=== PATIENT | female | born 1930 | race Caucasian/White ===

== ENCOUNTER → 2016-05-19 | Outpatient (CLI) | payer OTHER, MEDICAID ==
--- NOTE | 2016-05-19 14:23 | DX ---
Right Wrist, 4 views including a navicular view History: Chronic pain post trauma. Slip and fall in February 2016. Comparison: September 25, 2009 Findings: No fracture or dislocation is identified. 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 There is a stable hypertrophic ridge of the d istal navicular. There are chronic degenerative cysts or erosions involving the carpal bones and ulna r styloid. Mineralization is normal. I do not identify a subacute or healing fracture. 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 Alignment remains anatomic. Impression: No subacute or chronic healing fracture identified. Might this patient have CPPD?
== END ==
LOC: BMCIMAGING 14:05
PROVIDERS: ATTEND Family Medicine
DX: M25.531 Pain in right wrist (principal); W19.XXXA Unspecified fall, initial encounter

== ENCOUNTER 2016-07-06 14:30 | Emergency (ER) | payer OTHER, MEDICAID ==
--- NOTE | 2016-07-06 15:04 | EDPHY ---
H & P Time Seen by Provider: 07/06/16 15:03 HPI/ROS: CHIEF COMPLAINT: Epistaxis HISTORY OF PRESENT ILLNESS: This patient is an 85 year old female who presents to the Emergency Department complaining of acute right-sided epistaxis beginning approximately 40 minutes prior to arrival. She had a previous nosebleed yesterday lasting for approximately 1.5 hours before subsiding on its own. She denies rhinorrhea recently or any recent colds or infections. She denies lightheadedness, weakness, or any additional complaints. No anticoagulant use. REVIEW OF SYSTEMS: Constitutional: No fever, no chills Eyes: No visual changes ENT: No sore throat Respiratory: No cough, no shortness of breath Cardiac: No chest pain Gastrointestinal: No nausea, no vomiting, no abdominal pain Genitourinary: No hematuria, no dysuria Musculoskeletal: No leg pain or swelling Skin: No rash Neurological: No headache, no numbness, no weakness Psychiatric: No depression Past Medical/Surgical History: Hypertension (lisinopril). Social History: . Lives in [place]. Never smoked. Smoking Status: Never smoked Physical Exam: General Appearance: Alert, no distress Eyes: Pupils equal and round, no conjunctival pallor or injection ENT, Mouth: Mucous membranes moist; prominent vessel on anterior septum, no current bleeding Neck: Normal inspection Respiratory: Lungs are clear to auscultation Cardiovascular: Regular rate and rhythm Gastrointestinal: Abdomen is soft and non- tender Neurological: A&O, nonfocal, normal gait Skin: Warm and dry, no rash Extremities: Nontender, no pedal edema Psychiatric: Mood and affect normal Constitutional: Initial Vital Signs Temperature (C) 36.5 C 07/06/16 14:40 Heart Rate 71 07/06/16 14:40 Respiratory Rate 18 07/06/16 14:40 Blood Pressure 153/65 H 07/06/16 14:40 O2 Sat (%) 96 07/06/16 14:40 O2 Delivery Mode Room Air Allergies/Adverse Reactions: No Known Allergies Allergy (Verified 07/06/16 14:39) Home Medications: Medication Instructions Recorded HYDROCHLOROTHIAZIDE 09/25/09 LISINOPRIL 09/25/09 PRAVASTATIN SODIUM 09/25/09 oxyCODONE/APAP 5/325 [Percocet 1 tab PO Q6 #15 tab 09/25/09 5/325] Ondansetron Odt [Zofran Odt 4 mg 4 mg PO Q4 PRN #6 tab 05/14/14 (*)] Medical Decision Making Procedures: Procedure: Epistaxis control. Indication: Recurrent nosebleed Risks, benefits, alternatives discussed with patient and consent obtained. The right nares was anesthetized with 4% Lidocaine. The anterior epistaxis was identified. The prominent vessel on the anterior septum was cauterized with silver nitrate. Following the procedure the patient was re-examined; no recurrent bleeding. The patient tolerated the procedure well. The procedure was performed by myself, Dr. Zimmerman. ED Course/Re-evaluation: This normally healthy non-anticoagulated 85 year old female presents with a second episode of acute right-sided epistaxis within the last two days. She reports that her nosebleed has remained intractable for the last 40 minutes. On exam, there is a prominent vessel on the anterior septum but no active bleeding. Epistaxis control procedure performed (see procedure note). I provided the patient with a nose clip for epistaxis control and discussed appropriate treatment of recurrent nosebleeds. She will be discharged home in good condition with customary return precautions and referral to her PCP for follow-up. Departure - Departure Disposition: Home, Routine, Self-Care Clinical Impression: Right-sided epistaxis Condition: Good Instructions: Nosebleed (ED) Additional Instructions: 1. If you have a repeat nosebleed, use the clip provided to squeeze your nose to prevent continued bleeding. 2. If you have a repeat nosebleed that will not stop bleeding even with use of the clip for over 2 hours, please return to the Emergency Department. You should also return here if you experience lightheadedness, dizziness, confusion , or for other serious concerns. 3. Follow-up with your primary care provider if you have multiple repeat nosebleeds to discuss long-term preventative care. Referrals: Leah Shields MD [Primary Care Provider] - As per Instructions Report Scribed for: Hermelinda Zimmerman Report Scribed by: Maddie Cameron Date of Report: 07/06/16 Time of Report: 15:04 Physician Review and Approval Statement: 07/06/16 15:04 Portions of this note were transcribed by a medical videographer. I personally performed a history, physical exam, medical decision making, and confirmed accuracy of information the transcribed note.
[2016-07-06] MEDS ORDERED: LIDOCAINE HCL 4% TOPICAL SOLN 50ML ONE (15:15)
[2016-07-06] MEDS ORDERED: SILVER NITRATE APPLICATOR 1 APPL TP ONE (15:18)
[2016-07-06 15:53] VITALS: BP 159/75; PULSE 57; RESP 16; TEMP 97.5; O2SAT 90
== END 2016-07-06 15:53 | disposition home or self-care (01) ==
PROC: 2Y41X5Z Packing of Nasal Region using Packing Material (ICD-10-PCS; principal; 2016-07-06)
DX: R04.0 Epistaxis (principal); I10 Essential (primary) hypertension

== ENCOUNTER → 2016-11-14 | Outpatient (CLI) | payer OTHER, MEDICAID | LOC: BMCIMAGING 12:51 | PROVIDERS: ATTEND Family Medicine | DX: Z12.31 Encounter for screening mammogram for malignant neoplasm of breast (principal) | CPT/HCPCS: G0202 ==

== ENCOUNTER 2017-07-18 11:22 | Emergency (ER) | payer OTHER, MEDICAID ==
--- NOTE | 2017-07-18 11:55 | CPEKG ---
Heart Rate: 77 RR Interval: 779 P-R Interval: 184 QRSD Interval: 78 QT Interval: 384 QTC Interval: 435 P [place]: 14 QRS [place]: 27 T Wave [place]: 48 EKG Severity - BORDERLINE ECG - EKG Impression: SINUS RHYTHM EKG Impression: BORDERLINE ST ELEVATION, INFERIOR LEADS Electronically Signed By: Faisal Silverman 19-Jul-2017 08:04:10
[2017-07-18 12:00] LABS: PLATELET COUNT 164 10^3/uL (150-400)
--- NOTE | 2017-07-18 12:20 | EDPHY ---
HPI/HX/ROS/PE/MDM Narrative: CHIEF COMPLAINT: Weakness, dyspnea, fever HPI: This patient is a Maced[place]-speaking 86 year old female complaining of weakness, dyspnea, and fever. She began feeling poorly yesterday evening. She has pain in the center of her chest with deep inspiration. She rates her discomfort as 7/10 in severity. She also feels generally weak. Last night, her temperature was elevated at 38.4 degrees C. Her blood pressure was elevated as well. This morning, her temperature was 37.5, but she continues to feel week and experience pleuritic pain. She denies cough. No abdominal pain, vomiting, diarrhea, dysuria. She denies current shortness of breath. No known history of blood clots. HPI primarily obtained from son-in-law translating at bedside. REVIEW OF SYSTEMS: Aside from elements discussed in the HPI, a comprehensive 10-point review of systems was reviewed and is negative. PMH: Hypertension. GERD. SOCIAL HISTORY: Son-in-law at bedside. Lives in [place]. Retired. PHYSICAL EXAM: General:Patient is alert, in no acute distress. ENT:Eyes are normal to inspection. ENT inspection normal. Neck: Normal inspection. Full range of motion. Respiratory:No respiratory distress. Breath sounds normal bilaterally. Cardiovascular: Regular rate and rhythm. Strong peripheral pulses. Normal cap refill. Abdomen:The abdomen is nontender to palpation. There are no peritoneal signs. There are normal bowel sounds. Back: Normal to inspection. No tenderness to palpation. Skin: Normal color. No rash. Warm and dry. Extremities: Normal appearance. Full range of motion. Neuro: Oriented x3. Normal motor function. Normal sensory function. ED Course: 86 y/o female presents with fever, weakness, and pleuritic pain. She is afebrile here in the emergency department. Plan for EKG, chest x-ray, labs including CBC, chemistries, D-dimer, troponin, lactic acid, blood cultures, UA. EKG was ordered and interpreted by myself. Please see [place] system for official reading. CXR negative for pneumonia. Troponin negative. Lactic acid negative at 1.0. Labs otherwise unremarkable. D- dimer pending. D-dimer elevated at 0.54. Plan for CTA to r/o PE or other acute processes. 15:05 Spoke with radiologist. CTA chest negative for acute processes. Plan to discharge home in good condition. Follow up and return precautions discussed. The patient and her son-in-law are comfortable with this plan. MDM: This patient presents with report of fever and chest pain. We performed an extensive workup including labs, troponin, and CTA, which are all negative. I see no signs of ACS, PE, PNA, TAD, PTx or sepsis. The etiology of her pain is unclear but I think she is safe for outpatient management and further testing. She agrees. We discussed strict return precautions. - Data Points Imaging: I viewed and interpreted images myself Laboratory Results: Laboratory Results 07/18/17 11:50 07/18/17 11:50 07/18/17 07/18/17 07/18/17 12:43 11:50 11:50 WBC RBC Hgb Hct MCV MCH MCHC RDW Plt Count MPV Neut % (Auto) Lymph % (Auto) [place] % (Auto) Eos % (Auto) Baso % (Auto) Nucleat RBC Rel Count Absolute Neuts (auto) Absolute Lymphs (auto) Absolute Monos (auto) Absolute Eos (auto) Absolute Basos (auto) Absolute Nucleated RBC Immature Gran % Immature Gran # D-Dimer 0.52 ug/mLFEU H ug/mLFEU REJ (0.00-0.50) VBG Lactic Acid Sodium 136 mEq/L mEq/L (135-145) Potassium 4.3 mEq/L mEq/L (3.5-5.2) Chloride 101 mEq/L mEq/L (97-110) Carbon Dioxide 25 mEq/l mEq/l (22-31) Anion Gap 10 mEq/L mEq/L (8-16) BUN 23 mg/dL mg/dL (7-23) Creatinine 0.8 mg/dL mg/dL (0.6-1.0) Estimated GFR > 60 Glucose 109 mg/dL H mg/dL (70-100) Calcium 9.2 mg/dL mg/dL (8.5-10.4) Troponin I < 0.012 ng/mL ng/mL (0.000-0.034) 07/18/17 07/18/17 11:50 11:50 WBC 7.72 10^3/uL 10^3/uL (3.80-9.50) RBC 4.17 10^6/uL L 10^6/uL (4.18-5.33) Hgb 12.6 g/dL g/dL (12.6-16.3) Hct 37.5 % L % (38.0-47.0) MCV 89.9 fL fL (81.5-99.8) MCH 30.2 pg pg (27.9-34.1) MCHC 33.6 g/dL g/dL (32.4-36.7) RDW 12.7 % % (11.5-15.2) Plt Count 164 10^3/uL 10^3/uL (150-400) MPV 9.6 fL fL (8.7-11.7) Neut % (Auto) 73.0 % % (39.3-74.2) Lymph % (Auto) 12.2 % L % (15.0-45.0) [place] % (Auto) 14.2 % H % (4.5-13.0) Eos % (Auto) 0.0 % L % (0.6-7.6) Baso % (Auto) 0.3 % % (0.3-1.7) Nucleat RBC Rel Count 0.0 % % (0.0-0.2) Absolute Neuts (auto) 5.64 10^3/uL 10^3/uL (1.70-6.50) Absolute Lymphs (auto) 0.94 10^3/uL L 10^3/uL (1.00-3.00) Absolute Monos (auto) 1.10 10^3/uL H 10^3/uL (0.30-0.80) Absolute Eos (auto) 0.00 10^3/uL L 10^3/uL (0.03-0.40) Absolute Basos (auto) 0.02 10^3/uL 10^3/uL (0.02-0.10) Absolute Nucleated RBC 0.00 10^3/uL 10^3/uL (0-0.01) Immature Gran % 0.3 % % (0.0-1.1) Immature Gran # 0.02 10^3/uL 10^3/uL (0.00-0.10) D-Dimer VBG Lactic Acid 1.0 mmol/L mmol/L (0.7-2.1) Sodium Potassium Chloride Carbon Dioxide Anion Gap BUN Creatinine Estimated GFR Glucose Calcium Troponin I Medications Given: Discontinued Medications Sodium Chloride (Ns) 1,000 mls @ 0 mls/hr IV ONCE ONE PRN Reason: Wide Open Stop: 07/18/17 14:12 Last Admin: 07/18/17 14:13 Dose: 1,000 mls General Time Seen by Provider: 07/18/17 11:53 Initial Vital Signs: Initial Vital Signs Temperature (C) 37.2 C 07/18/17 11:30 Heart Rate 88 07/18/17 11:30 Respiratory Rate 18 07/18/17 11:30 Blood Pressure 113/71 07/18/17 11:30 O2 Sat (%) 92 07/18/17 11:30 O2 Delivery Mode Room Air O2 (L/minute) 2 Allergies/Adverse Reactions: No Known Allergies Allergy (Verified 07/18/17 11:30) Home Medications: Medication Instructions Recorded HYDROCHLOROTHIAZIDE 09/25/09 LISINOPRIL 09/25/09 PRAVASTATIN SODIUM 09/25/09 oxyCODONE/APAP 5/325 [Percocet 1 tab PO Q6 #15 tab 09/25/09 5/325] Ondansetron Odt [Zofran Odt 4 mg 4 mg PO Q4 PRN #6 tab 05/14/14 (*)] Departure - Departure Disposition: Home, Routine, Self-Care Clinical Impression: Chest pain Condition: Good Instructions: Chest Pain (ED) Additional Instructions: Follow-up with your primary doctor within 2-3 days. Take Tylenol or ibuprofen as directed on the packaging as needed for fever. Return to the Emergency Department for fever, chest pain, shortness of breath, increasing pain or other worsening of condition. Follow up with a capsule filler for further testing. As we discussed, it is impossible to fully rule out heart disease as the cause of your chest pain in the emergency department. We would be happy to reevaluate you and observe you in the hospital at any time. Referrals: Leah Shields MD [Primary Care Provider] - As per Instructions Elisa Coreas MD [Medical Doctor] - As per Instructions Report Scribed for: Gregor Becerra Report Scribed by: Vania Jimenez Date of Report: 07/18/17 Time of Report: 12:19 Physician Review and Approval Statement: Portions of this note were transcribed by an ED scribe. I personally performed the history, physical exam, and medical decision making; and confirm the accuracy of the information in the transcribed note.
[2017-07-18 13:18] VITALS: RESP 16
[2017-07-18] MEDS ORDERED: NS 1,000 ML IV ONE (14:11)
[2017-07-18] MEDS ORDERED: IOPAMIDOL (ISOVUE 370) 100 ML BTL IV ONE (14:19)
[2017-07-18 15:42] VITALS: BP 107/51; PULSE 69; TEMP 97.9; O2SAT 98
== END 2017-07-18 15:41 | disposition home or self-care (01) ==
DX: R07.9 Chest pain, unspecified (principal); I10 Essential (primary) hypertension
CPT/HCPCS: 71046; 71275; 93005; 96360; 99285; Q9967

== ENCOUNTER → 2017-09-24 | Outpatient (CLI) | payer OTHER, MEDICAID | LOC: BMCIMAGING 09:17 | PROVIDERS: ATTEND Orthopaedic Surgery | DX: M17.0 Bilateral primary osteoarthritis of knee (principal) ==

== ENCOUNTER → 2017-10-23 | Outpatient (CLI) | payer OTHER, MEDICAID | LOC: BMCIMAGING 13:53 | PROVIDERS: ATTEND Obstetrics & Gynecology | DX: N83.201 Unspecified ovarian cyst, right side (principal); R10.2 Pelvic and perineal pain ==

== ENCOUNTER → 2018-05-19 | Outpatient (CLI) | payer OTHER, MEDICAID | LOC: BMCIMAGING 14:06 | PROVIDERS: ATTEND Family Medicine | DX: R91.8 Other nonspecific abnormal finding of lung field (principal); R05 Cough ==

== ENCOUNTER 2018-05-21 06:59 | Inpatient (IN) | payer OTHER, MEDICAID ==
--- NOTE | 2018-05-21 07:09 | EDPHY ---
H & P Time Seen by Provider: 05/21/18 06:59 HPI/ROS: CHIEF COMPLAINT: Cough and shortness of breath HISTORY OF PRESENT ILLNESS: Sick for the past 4 days. No influenza vaccine. Was seen yesterday at urgent care presents today with worsening shortness of breath. Associated with a cough and feeling like she can't get mucus out of her chest. Worse lying down and better sitting up. Denies chest pain to me. Denies hemoptysis or leg swelling. Last night symptoms of shortness of breath were moderate to severe. REVIEW OF SYSTEMS: Eye: no change in vision ENT: no sore throat Cardiac: no chest pain or syncope Pulmonary: HPI Abdomen: no vomiting, diarrhea, abdominal pain Musculoskeletal: no back pain Skin: no rash Neuro: no headache Constitutional: no fever : no urinary symptoms A comprehensive 10 point review of systems is otherwise negative aside from elements mentioned in the history of present illness. 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 Eyes: No scleral icterus. ENT, Mouth: Normal mucous membranes. Respiratory: Right lower lung wheezing heard worse than left. Saturation 88% on room air. Cardiovascular: Regular rate and rhythm. Gastrointestinal: Abdomen is soft and non tender. Neurological: Alert, face symmetric, normal motor and sensory in extremities. Skin: Warm and dry, no rashes. Musculoskeletal: No peripheral edema. No calf tenderness. Psychiatric: Not agitated. Emergency Department course/MDM: Supplemental oxygen applied, nasal cannula brings her up to mid 90s. She speaks in full sentences. DuoNeb was given pre-hospital, albuterol neb and 80 mg IV Solu-Medrol in the ED. Plan for chest x-ray and labs, sepsis screening, respiratory pathogen panel. Admission for hypoxemia. 801: Chest x-ray negative for pneumonia. EKG normal. I think that ACS or CHF or pulmonary infection or PE are all unlikely. Supportive care, treatment for bronchospasm, supplemental oxygen. Smoking Status: Never smoked Constitutional: Initial Vital Signs Temperature (C) 37.3 C 05/21/18 07:04 Heart Rate 92 05/21/18 07:04 Respiratory Rate 20 05/21/18 07:04 Blood Pressure 169/90 H 05/21/18 07:04 O2 Sat (%) 95 05/21/18 07:04 O2 Delivery Mode Nasal Cannula O2 (L/minute) 2 Allergies/Adverse Reactions: No Known Allergies Allergy (Verified 07/18/17 11:30) Home Medications: Medication Instructions Recorded Lisinopril/Hydrochlorothiazide 1 each PO DAILY 09/25/09 [Zestoretic 20-25 mg Tablet] Albuterol [Proventil Inhaler HFA 1 - 2 puffs IH Q4H PRN 05/21/18 (*)] Ergocalciferol [Vitamin D2 (*)] 50,000 unit PO Q7D 05/21/18 Esomeprazole Mag Trihydrate 40 mg PO DAILY 05/21/18 [Nexium] cycloSPORINE 0.05% [Restasis Opht 1 drop EACHEYE BID 05/21/18 Drops(*)] Medical Decision Making - Diagnostics EKG Interpretation: 12-lead EKG interpreted by me; official reading is in computer system. My interpretation is sinus rhythm rate 80 no ischemic changes. Imaging Results: Imaging Impressions Chest X-Ray 05/21/18 07:12 Impression: No radiographic evidence for pneumonia. Chest x-ray personally interpreted negative for pneumonia. Imaging: I viewed and interpreted images myself Differential Diagnosis: Differential diagnosis considered for shortness of breath including but not limited to pulmonary infectious process, COPD, asthma, pulmonary embolus and congestive heart failure. Consult/Admit Bed Type: [facility] for Dr. Myers 801 - Data Points Laboratory Results: Laboratory Results 05/21/18 07:25 05/21/18 07:25 05/21/18 05/21/18 05/21/18 07:25 07:25 07:25 WBC RBC Hgb Hct MCV MCH MCHC RDW Plt Count MPV Neut % (Auto) Lymph % (Auto) [place] % (Auto) Eos % (Auto) Baso % (Auto) Nucleat RBC Rel Count Absolute Neuts (auto) Absolute Lymphs (auto) Absolute Monos (auto) Absolute Eos (auto) Absolute Basos (auto) Absolute Nucleated RBC Immature Gran % Immature Gran # PT 13.7 SEC SEC (12.0-15.0) INR 1.03 (0.83-1.16) APTT 26.4 SEC SEC (23.0-38.0) VBG Lactic Acid 1.0 mmol/L mmol/L (0.7-2.1) Sodium 138 mEq/L mEq/L (135-145) Potassium 3.8 mEq/L mEq/L (3.5-5.2) Chloride 106 mEq/L mEq/L (97-110) Carbon Dioxide 24 mEq/l mEq/l (22-31) Anion Gap 8 mEq/L mEq/L (6-14) BUN 14 mg/dL mg/dL (7-23) Creatinine 0.9 mg/dL mg/dL (0.6-1.0) Estimated GFR 59 Glucose 120 mg/dL H mg/dL (70-100) Calcium 9.6 mg/dL mg/dL (8.5-10.4) Total Bilirubin 0.5 mg/dL mg/dL (0.1-1.4) 05/21/18 07:25 WBC 4.52 10^3/uL 10^3/uL (3.80-9.50) RBC 4.31 10^6/uL 10^6/uL (4.18-5.33) Hgb 12.8 g/dL g/dL (12.6-16.3) Hct 38.6 % % (38.0-47.0) MCV 89.6 fL fL (81.5-99.8) MCH 29.7 pg pg (27.9-34.1) MCHC 33.2 g/dL g/dL (32.4-36.7) RDW 12.8 % % (11.5-15.2) Plt Count 161 10^3/uL 10^3/uL (150-400) MPV 8.8 fL fL (8.7-11.7) Neut % (Auto) 70.0 % % (39.3-74.2) Lymph % (Auto) 19.7 % % (15.0-45.0) [place] % (Auto) 9.5 % % (4.5-13.0) Eos % (Auto) 0.2 % L % (0.6-7.6) Baso % (Auto) 0.4 % % (0.3-1.7) Nucleat RBC Rel Count 0.0 % % (0.0-0.2) Absolute Neuts (auto) 3.16 10^3/uL 10^3/uL (1.70-6.50) Absolute Lymphs (auto) 0.89 10^3/uL L 10^3/uL (1.00-3.00) Absolute Monos (auto) 0.43 10^3/uL 10^3/uL (0.30-0.80) Absolute Eos (auto) 0.01 10^3/uL L 10^3/uL (0.03-0.40) Absolute Basos (auto) 0.02 10^3/uL 10^3/uL (0.02-0.10) Absolute Nucleated RBC 0.00 10^3/uL 10^3/uL (0-0.01) Immature Gran % 0.2 % % (0.0-1.1) Immature Gran # 0.01 10^3/uL 10^3/uL (0.00-0.10) PT INR APTT VBG Lactic Acid Sodium Potassium Chloride Carbon Dioxide Anion Gap BUN Creatinine Estimated GFR Glucose Calcium Total Bilirubin Medications Given: Discontinued Medications Albuterol (Proventil Neb) 3 ml IH EDNOW ONE Stop: 05/21/18 07:13 Last Admin: 05/21/18 07:26 Dose: 3 ml Methylprednisolone Sodium Succinate (Solu-Medrol) 80 mg IVP EDNOW ONE Stop: 05/21/18 07:13 Last Admin: 05/21/18 07:26 Dose: 80 mg Departure - Departure Disposition: [facility] Acute Clinical Impression: Hypoxemia Acute bronchitis Qualifiers: Bronchitis organism: unspecified organism Qualified Code(s): J20.9 - Acute bronchitis, unspecified Condition: Good
[2018-05-21] MEDS ORDERED: ALBUTEROL 3 ML DEYVIAL IH ONE (07:12)
[2018-05-21] MEDS ORDERED: methylPREDNISolone SOD SUCC 125 MG/2 ML VIAL IVP ONE (07:12)
[2018-05-21 07:37] LABS: PLATELET COUNT 161 10^3/uL (150-400)
[2018-05-21 07:46] LABS: INR 1.03 (0.83-1.16); PROTIME(PATIENT) 13.7 SEC (12.0-15.0)
--- NOTE | 2018-05-21 07:53 | CPEKG ---
Test Reason : OPEN Blood Pressure : / mmHG Vent. Rate : 080 BPM Atrial Rate : 081 BPM P-R Int : 151 ms QRS Dur : 080 ms QT Int : 399 ms P-R-T Axes : 019 061 061 degrees QTc Int : 461 ms Sinus rhythm Confirmed by Faisal Silverman ([id number]) on 05/21/2018 7:53:01 AM Referred By: Faisal Silverman Confirmed By:Faisal Silverman
--- NOTE | 2018-05-21 08:42 | PDGENHP ---
History and Physical - Chief Complaint Shortness of breath - History of Present Illness Patient is an 87-year-old pleasant female with past medical history of hypertension who presented to the ER with complaints of acute worsening shortness of breath. She says that she developed cold-like symptoms starting Sunday. She said that she had a dry cough and was having shortness of breath when she would lie flat. She went to an urgent care center yesterday and was given something to help with mucus. She felt that her shortness of breath worsened and she decided to come to the emergency room this morning. She had subjective fevers but no chills. She denied any chest pain, nausea, vomiting, diarrhea. She denied any new onset or worsening lower extremity edema. She says that she did get a flu shot this year in January. No recent contacts that are sick and no recent travel. History Information - Allergies/Home Medication List Allergies/Adverse Reactions: No Known Allergies Allergy (Verified 07/18/17 11:30) Home Medications: Lisinopril/Hydrochlorothiazide [Zestoretic 20-25 mg Tablet] 1 each PO DAILY 03/25 [Last Taken Unknown] Albuterol [Proventil Inhaler HFA (*)] 1 - 2 puffs IH Q4H PRN 05/21/18 [Last Taken Unknown] Ergocalciferol [Vitamin D2 (*)] 50,000 unit PO Q7D 05/21/18 [Last Taken Unknown] Esomeprazole Mag Trihydrate [Nexium] 40 mg PO DAILY 05/21/18 [Last Taken Unknown ] cycloSPORINE 0.05% [Restasis Opht Drops(*)] 1 drop EACHEYE BID 05/21/18 [Last Taken Unknown] I have personally reviewed and updated: family history, medical history, social history, surgical history - Past Medical History GERD, hypertension - Surgical History Reports: cholecystectomy - Family History Positive for: non-pertinent - Social History Smoking Status: Never smoked Review of Systems Review of Systems: ROS: 10pt was reviewed & negative except for what was stated in HPI & below Physical Exam Physical Exam: Temp Pulse Resp BP Pulse Ox 37.3 C 92 20 169/90 H 95 05/21/18 07:04 05/21/18 07:04 05/21/18 07:04 05/21/18 07:04 05/21/18 07:04 Lab Data & Imaging Review 05/21/18 07:25 05/21/18 07:25 WBC 4.52 10^3/uL (3.80-9.50) 05/21/18 07:25 RBC 4.31 10^6/uL (4.18-5.33) 05/21/18 07:25 Hgb 12.8 g/dL (12.6-16.3) 05/21/18 07:25 Hct 38.6 % (38.0-47.0) 05/21/18 07:25 MCV 89.6 fL (81.5-99.8) 05/21/18 07:25 MCH 29.7 pg (27.9-34.1) 05/21/18 07:25 MCHC 33.2 g/dL (32.4-36.7) 05/21/18 07:25 RDW 12.8 % (11.5-15.2) 05/21/18 07:25 Plt Count 161 10^3/uL (150-400) 05/21/18 07:25 MPV 8.8 fL (8.7-11.7) 05/21/18 07:25 Neut % (Auto) 70.0 % (39.3-74.2) 05/21/18 07:25 Lymph % (Auto) 19.7 % (15.0-45.0) 05/21/18 07:25 Gonzales % (Auto) 9.5 % (4.5-13.0) 05/21/18 07:25 Eos % (Auto) 0.2 % (0.6-7.6) L 05/21/18 07:25 Baso % (Auto) 0.4 % (0.3-1.7) 05/21/18 07:25 Nucleat RBC Rel Count 0.0 % (0.0-0.2) 05/21/18 07:25 Absolute Neuts (auto) 3.16 10^3/uL (1.70-6.50) 05/21/18 07:25 Absolute Lymphs (auto) 0.89 10^3/uL (1.00-3.00) L 05/21/18 07:25 Absolute Monos (auto) 0.43 10^3/uL (0.30-0.80) 05/21/18 07:25 Absolute Eos (auto) 0.01 10^3/uL (0.03-0.40) L 05/21/18 07:25 Absolute Basos (auto) 0.02 10^3/uL (0.02-0.10) 05/21/18 07:25 Absolute Nucleated RBC 0.00 10^3/uL (0-0.01) 05/21/18 07:25 Immature Gran % 0.2 % (0.0-1.1) 05/21/18 07:25 Immature Gran # 0.01 10^3/uL (0.00-0.10) 05/21/18 07:25 PT 13.7 SEC (12.0-15.0) 05/21/18 07:25 INR 1.03 (0.83-1.16) 05/21/18 07:25 APTT 26.4 SEC (23.0-38.0) 05/21/18 07:25 VBG Lactic Acid 1.0 mmol/L (0.7-2.1) 05/21/18 07:25 Sodium 138 mEq/L (135-145) 05/21/18 07:25 Potassium 3.8 mEq/L (3.5-5.2) 05/21/18 07:25 Chloride 106 mEq/L (97-110) 05/21/18 07:25 Carbon Dioxide 24 mEq/l (22-31) 05/21/18 07:25 Anion Gap 8 mEq/L (6-14) 05/21/18 07:25 BUN 14 mg/dL (7-23) 05/21/18 07:25 Creatinine 0.9 mg/dL (0.6-1.0) 05/21/18 07:25 Estimated GFR 59 05/21/18 07:25 Glucose 120 mg/dL (70-100) H 05/21/18 07:25 Calcium 9.6 mg/dL (8.5-10.4) 05/21/18 07:25 Total Bilirubin 0.5 mg/dL (0.1-1.4) 05/21/18 07:25 Assessment & Plan Assessment: 87-year-old [place] female with past medical history of hypertension admitted for hypoxia and cough. Acute bronchitis (Acute) hypertension- chest x-ray is clear with no cardiomegaly no infiltrates and no interstitial edema. She has no white count. On exam she has mild wheezes but no crackles. Vitals are stable but she is hypoxic on room air to about 87% and requires 2 L. Case discussed with emergency room physician. -respiratory panel-----> positive for RSV. -p.r.n. Albuterol nebs -hold antibiotics for now -oxygen as needed -check brain natriuretic peptide given her orthopnea Hypoxemia (Acute)- likely secondary to a viral upper respiratory tract infection. Viral respiratory panel pending. Given oxygen and managing as above Hypertension- takes Zestoretic at home. Not hypotensive currently. Will continue home regimen Prophylaxis- SCDs and heparin Fluids- gentle hydration with intravenous saline Electrolytes- within normal limits Nutrition-regular diet Code status- full for now she would like to discuss this with her daughter of Dispo- observation for hypoxemia and viral upper respiratory tract infection
[2018-05-21] MEDS ORDERED: ONDANSETRON DISINTEGRATING 4 MG TAB PO PRN (09:05)
[2018-05-21] MEDS ORDERED: ACETAMINOPHEN 325 MG TAB PO PRN (09:05)
[2018-05-21] MEDS ORDERED: ALBUTEROL 3 ML DEYVIAL IH PRN (09:05)
[2018-05-21] MEDS ORDERED: ONDANSETRON 4 MG/2 ML VIAL IVP PRN (09:05)
[2018-05-21] MEDS ORDERED: HYDROCHLOROTHIAZIDE 12.5 MG CAP PO SCH ×3 (10:00→10:15)
[2018-05-21] MEDS: HYDROCHLOROTHIAZIDE 12.5 MG CAP PO SCH (10:19)
[2018-05-21] MEDS: LISINOPRIL 20 MG TAB PO SCH (10:19)
[2018-05-21] MEDS: NS 1,000 ML IV SCH (10:20)
[2018-05-21] MEDS: cycloSPORINE 0.05% 30 DROPERETTE/BOX EACHEYE SCH (20:06)
[2018-05-22 06:10] LABS: PLATELET COUNT 179 10^3/uL (150-400)
[2018-05-22] MEDS: NS 1,000 ML IV SCH (06:20)
[2018-05-22] MEDS: PANTOPRAZOLE SODIUM 40 MG TAB PO SCH (08:39)
[2018-05-22] MEDS: ENOXAPARIN 40 MG/0.4 ML SYR SC SCH (08:39)
[2018-05-22] MEDS: cycloSPORINE 0.05% 30 DROPERETTE/BOX EACHEYE SCH ×2 (08:41→21:30)
[2018-05-22] MEDS: LISINOPRIL 20 MG TAB PO SCH (10:15)
[2018-05-22] MEDS: HYDROCHLOROTHIAZIDE 12.5 MG CAP PO SCH (10:15)
[2018-05-22] MEDS: BENZONATATE 100 MG CAP PO PRN ×2 (15:43→21:29)
--- NOTE | 2018-05-22 15:52 | HOSPPROG ---
Hospitalist Progress Note Assessment/Plan: 87-year-old [place] Islander female with past medical history of hypertension admitted for hypoxia and cough. Acute bronchitis (Acute) hypertension- chest x-ray is clear with no cardiomegaly no infiltrates and no interstitial edema. She has no white count. On exam she has mild wheezes but no crackles. Vitals are stable but she is hypoxic on room air to about 87% and requires 2 L. Case discussed with emergency room physician. -respiratory panel positive for RSV. -p.r.n. Albuterol nebs -hold antibiotics for now -oxygen as needed Hypoxemia (Acute)- likely secondary to a viral upper respiratory tract infection. Given oxygen and managing as above Hypertension- takes Zestoretic at home. Not hypotensive currently. Will continue home regimen Prophylaxis- SCDs and heparin Fluids- gentle hydration with intravenous saline Electrolytes- within normal limits Nutrition-regular diet Code status- full for now she would like to discuss this with her daughter of Dispo- Inpatient for hypoxemia and viral upper respiratory tract infection Subjective: breathing better. still coughing a lot. Objective: Vital Signs Temp Pulse Resp BP Pulse Ox 36.6 C 55 L 14 120/76 94 05/22/18 07:14 05/22/18 07:14 05/22/18 07:14 05/22/18 10:15 05/22/18 07:14 Laboratory Results 05/22/18 04:25 05/22/18 04:25 PT 13.7 SEC (12.0-15.0) 05/21/18 07:25 INR 1.03 (0.83-1.16) 05/21/18 07:25 - Physical Exam Constitutional: no apparent distress, appears nourished, not in pain Eyes: PERRL, anicteric sclera, EOMI Ears, Nose, Mouth, Throat: moist mucous membranes, hearing normal, ears appear normal, no oral mucosal ulcers Cardiovascular: regular rate and rhythym, no murmur, rub, or gallop Respiratory: reduced air movement, inspiratory crackles Gastrointestinal: normoactive bowel sounds, soft, non-tender abdomen, no palpable masses Genitourinary: no bladder fullness, no bladder tenderness, no renal bruits Skin: no rashes or abrasions, no fluctuance, no induration Musculoskeletal: full muscle strength, no muscle tenderness, normal joint ROM Neurologic: AAOx3, sensation intact bilaterally Psychiatric: interacting appropriately, not anxious, not encephalopathic, thought process linear Lymph, Heme, Immunologic: no cervical LAD, no supraclavicular LAD ICD10 Worksheet Patient Problems: Problems Problem Status Onset Acute bronchitis Acute Hypoxemia Acute
--- NOTE | 2018-05-22 17:52 | PDMN ---
Medical Necessity Medical necessity: [facility] Pulmonary Disease GR yo w/ SOB, dx w/ acute bronchitis, likely viral infection. Initially OBS for workup/supportive care but pt requires additional MN for continued hypoxia requiring O2 to maintain sats>90%, continued IV fluids. Hx HTN, GERD. Change to IP status 05/22/18@1705 per MD order.
--- NOTE | 2018-05-22 18:29 | ASMTCMCOM ---
CM Note CM Note Notes: Pt admitted to hospital with bronchitis, she lives at home alone but has help most days from family and caregivers. PT cleared pt for home. CM available for any changes. DC Plan: Independent Date Signed: 05/22/2018 06:29 PM Electronically Signed By:Rain Lemons RN
[2018-05-23 05:54] LABS: PLATELET COUNT 178 10^3/uL (150-400)
[2018-05-23] MEDS: HYDROCHLOROTHIAZIDE 12.5 MG CAP PO SCH (08:18)
[2018-05-23] MEDS: LISINOPRIL 20 MG TAB PO SCH (08:18)
[2018-05-23] MEDS: PANTOPRAZOLE SODIUM 40 MG TAB PO SCH (08:18)
[2018-05-23] MEDS: ENOXAPARIN 40 MG/0.4 ML SYR SC SCH (08:23)
[2018-05-23] MEDS: cycloSPORINE 0.05% 30 DROPERETTE/BOX EACHEYE SCH ×2 (08:23→20:05)
[2018-05-23] MEDS: BENZONATATE 100 MG CAP PO PRN (12:29)
--- NOTE | 2018-05-23 15:25 | HOSPPROG ---
Hospitalist Progress Note Assessment/Plan: 87-year-old [place] female with past medical history of hypertension admitted for hypoxia and cough. Found to have RSV. RSV- chest x-ray is clear with no cardiomegaly no infiltrates and no interstitial edema. She has no white count. Lungs sound better today. Not moving great air but . Vitals are stable but she is hypoxic on room air to about 87% and requires 2 L. Case discussed with emergency room physician. -respiratory panel positive for RSV. -p.r.n. Albuterol nebs -hold antibiotics for now -oxygen as needed -May need home oxygen -incentive spirometer Hypoxemia (Acute)- likely secondary to a viral upper respiratory tract infection. Given oxygen and managing as above Hypertension- takes Zestoretic at home. Not hypotensive currently. Will continue home regimen Prophylaxis- SCDs and heparin Fluids- gentle hydration with intravenous saline Electrolytes- within normal limits Nutrition-regular diet Code status- full for now she would like to discuss this with her daughter of Dispo- Inpatient for hypoxemia and viral upper respiratory tract infection Subjective: still short of breath with any ambulation. coughing less. Objective: Vital Signs Temp Pulse Resp BP Pulse Ox 36.7 C 62 16 152/73 H 89 L 05/23/18 04:28 05/23/18 11:07 05/23/18 11:07 05/23/18 08:18 05/23/18 11:07 Laboratory Results 05/23/18 04:24 05/23/18 04:24 05/22/18 05/23/18 05/24/18 05:59 05:59 05:59 Intake Total 850 Balance 850 PT 13.7 SEC (12.0-15.0) 05/21/18 07:25 INR 1.03 (0.83-1.16) 05/21/18 07:25 - Physical Exam Constitutional: no apparent distress, appears nourished, not in pain Eyes: PERRL, anicteric sclera, EOMI Ears, Nose, Mouth, Throat: moist mucous membranes, hearing normal, ears appear normal, no oral mucosal ulcers Cardiovascular: regular rate and rhythym, no murmur, rub, or gallop Respiratory: no respiratory distress, no rales or rhonchi, clear to auscultation Gastrointestinal: normoactive bowel sounds, soft, non-tender abdomen, no palpable masses Genitourinary: no bladder fullness, no bladder tenderness, no renal bruits Skin: no rashes or abrasions, no fluctuance, no induration Musculoskeletal: full muscle strength, no muscle tenderness, normal joint ROM Neurologic: AAOx3, sensation intact bilaterally Psychiatric: interacting appropriately, not anxious, not encephalopathic, thought process linear Lymph, Heme, Immunologic: no cervical LAD, no supraclavicular LAD ICD10 Worksheet Patient Problems: Problems Problem Status Onset Acute bronchitis Acute Hypoxemia Acute
[2018-05-24 05:38] LABS: PLATELET COUNT 174 10^3/uL (150-400)
[2018-05-24 07:48] VITALS: BP 136/70
[2018-05-24] MEDS: ENOXAPARIN 40 MG/0.4 ML SYR SC SCH (08:01)
[2018-05-24] MEDS: cycloSPORINE 0.05% 30 DROPERETTE/BOX EACHEYE SCH (08:01)
[2018-05-24] MEDS: PANTOPRAZOLE SODIUM 40 MG TAB PO SCH (08:01)
--- NOTE | 2018-05-24 10:51 | PDIAF ---
- Diagnosis Diagnosis: RSV bronchitis Code Status: Full Code - Medication Management Discharge Medications: electronically signed and located in the Home Medication List. - Orders Services needed: Home Care, Registered Nurse, Physical Therapy, Occupational Therapy Home Care Face to Face: I certify that this patient was under my care and that I had the required [id number] encounter meeting the encounter requirements on the discharge day. My findings support the fact that the patient is homebound as defined in Home Care Face to Face Continued: CMS Chapter 7 Medicare Benefits Manual 30.1.1 , The condition of the patient is such that there exists a normal inability to leave home and consequently, leaving home would require a considerable and taxing effort. Isolation Type: Contact Isolation, Droplet Isolation Diet Recommendation: no restrictions on diet - Follow Up Care Current Providers and Referrals: Patient,NotPresent [Unknown] - As per Instructions
[2018-05-24] MEDS: LISINOPRIL 20 MG TAB PO SCH (11:11)
[2018-05-24] MEDS: HYDROCHLOROTHIAZIDE 12.5 MG CAP PO SCH (11:12)
[2018-05-24] MEDS: BENZONATATE 100 MG CAP PO PRN (11:26)
--- NOTE | 2018-05-24 12:52 | ASMTDCNOTE ---
Case Management Discharge Discharge Order Complete? Answers: Yes Patient to Obtain Answers: via Family Medications Transportation Arranged Answers: Family/Friends Faxed Final Orders Answers: Yes Agency/Facility Transfer Answers: Yes Report Printed & Faxed to Receiving Agency Family Notified Answers: Yes Discharge Comments Notes: CM spoke with pt and her daughter, Vicky [phone] regarding discharge plans and homecare. Pt has unskilled home care in addition to [facility]. Family is aware. Family to transport. No other CM concerns at this time. Date Signed: 05/24/2018 12:51 PM Electronically Signed By:KARLOS Le
--- NOTE | 2018-05-24 14:33 | ASDISCHSUM ---
Discharge Information Plan Status:Home with Home Health Medically Cleared to Leave: Discharge Date: D/C Disposition:Home Health Service ADT D/C Disposition:Home Health Service Projected Discharge Date:05/24/2018 11:00 AM Transportation at D/C:Family Discharge Delay Reason: Follow-Up Date:05/24/2018 11:00 AM Discharge Slot: Final Diagnosis: Placement Information Referral Type:*Home Health Care Services Referral ID:[id number] Provider Name:[facility] [address] [address] [place] [address] Address 2: City:[place] Selection Factors: State:[place] Patient Contact Information Contact Name:ESTEBANMEGALIZET Relationship:Daughter Address: City:[facility] Phone: State/Zip Code:[place] Email: Financial Information Financial Class:Medicare Primary Plan Desc:MEDICARE INPATIENT Primary Plan Number:[id number] Secondary Plan Desc:[place] Secondary Plan Number:[id number] Assessment Information LACE LACE Length of stay for Answers: 1 day current admission Acuity / Level of Answers: Yes Care: Did the patient have an inpatient admission? Comorbidities - select Answers: Other Notes: HTN; GERD all that apply # of Emergency department Answers: 1-2 visits in the last 6 months Score: 6 Date Signed: 05/24/2018 02:32 PM Electronically Signed By:KARLOS Le [facility] CM Progress Note CM Note CM Note Notes: Pt admitted to hospital with bronchitis, she lives at home alone but has help most days from family and caregivers. PT cleared pt for home. CM available for any changes. DC Plan: Independent Date Signed: 05/22/2018 06:29 PM Electronically Signed By:Rain Lemons RN Case Management Discharge Plan Note Case Management Discharge Discharge Order Complete? Answers: Yes Patient to Obtain Answers: via Family Medications Transportation Arranged Answers: Family/Friends Faxed Final Orders Answers: Yes Agency/Facility Transfer Answers: Yes Report Printed & Faxed to Receiving Agency Family Notified Answers: Yes Discharge Comments Notes: CM spoke with pt and her daughter, Vicky [phone] regarding discharge plans and homecare. Pt has unskilled home care in addition to [facility]. Family is aware. Family to transport. No other CM concerns at this time. Date Signed: 05/24/2018 12:51 PM Electronically Signed By:KARLOS Le Intervention Information Intervention Type:*PEBBLES-Signed Date of Service:05/22/2018 11:47 AM Patient Type:Observation Staff Member:Vivian Garcia Hours: Discipline: Severity: Comment:
--- NOTE | 2018-05-24 18:47 | GDS ---
[f rep st] DISCHARGE SUMMARY DISCHARGE DIAGNOSES: 1. Respiratory syncytial virus bronchitis. 2. Hypertension. HISTORY: The patient is an 87-year-old female who presented with shortness of breath. She was found to be hypoxemic. Respiratory PCR came back positive for RSV. She was treated supportively. She cortés s improved and is saturating 92% on room air at the time of discharge. DISCHARGE MEDICATIONS: Please see computer record for full detailed list. NEW MEDICATIONS: Tessalon Perles 200 mg p.o. three times daily as needed. ADDITIONAL DISCHARGE INSTRUCTIONS: Home Health, PT, OT, VNS. Greater than 30 minutes was spent arranging this discharge. Patient was seen and examined by me on d ay of discharge. /[id number]/MODL
== END 2018-05-24 14:55 | disposition home health service (06) | DRG 203 ==
LOC: EDUNIT# → F3E 09:52 → OBSVTOIN 05-22 17:05
PROVIDERS: ADMIT Internal Medicine; ATTEND Internal Medicine
DX: J20.5 Acute bronchitis due to respiratory syncytial virus (principal); I10 Essential (primary) hypertension; E78.00 Pure hypercholesterolemia, unspecified; K21.9 Gastro-esophageal reflux disease without esophagitis
CPT/HCPCS: 96374; 97161-GP; 97165-GO; 97535-GO; G0378; J1650; J2930; J7613

== ENCOUNTER 2018-08-11 14:57 | Emergency (ER) | payer OTHER, MEDICAID ==
[2018-08-11] MEDS ORDERED: FAMOTIDINE 20 MG/NACL 50 ML IV ONE (15:22)
[2018-08-11] MEDS ORDERED: NS 250 ML IV ONE (15:22)
[2018-08-11] MEDS ORDERED: ONDANSETRON 4 MG/2 ML VIAL IVP ONE (15:22)
--- NOTE | 2018-08-11 15:26 | EDPHY ---
H & P Time Seen by Provider: 08/11/18 15:13 HPI/ROS: CHIEF COMPLAINT: Abdominal pain, nausea HISTORY OF PRESENT ILLNESS: The patient is an 87-year-old female with previous cholecystectomy who presents emergency department epigastric pain for the past 3 days. Pain is been waxing and waning. It is described as "an ache."Patient has had nausea but no vomiting. No diarrhea. No dysuria frequency. No hematuria. No fevers or chills. The patient states the pain feels similar to when she had her gallbladder taken out. REVIEW OF SYSTEMS: 10 systems were reveiwed and are negative with the exception of the elements mentioned in the history of present illness. Past Medical/Surgical History: Includes hypertension, GERD Past surgical history: Cholecystectomy Social history: Patient does not smoke. patient is from [place] Smoking Status: Never smoked Physical Exam: Vitals noted GENERAL: Well-appearing, in no acute distress, alert. HEENT: Eyes normal to inspection, normal pharynx, no signs of dehydration. NECK: Normal, supple. RESPIRATORY: Clear to auscultation bilaterally, no rales, rhonchi or wheezing. CVS: Regular rate and rhythm, no rubs, murmurs, or gallops. ABDOMEN: Soft, minimal epigastric tenderness to palpation with no rebound or guarding, nondistended, no organomegaly. BACK: Normal to inspection, no CVA tenderness. SKIN: Normal color, no rash, warm, dry. No pallor. EXTREMITIES: No pedal edema, no calf tenderness, no Homans sign or cords, no joint swelling. NEURO/PSYCH: Alert and oriented, normal mood and affect, normal motor sensory exam. Constitutional: Initial Vital Signs Temperature (C) 36.7 C 08/11/18 15:04 Heart Rate 79 08/11/18 15:04 Respiratory Rate 18 08/11/18 15:04 Blood Pressure 148/92 H 08/11/18 15:04 O2 Sat (%) 91 L 08/11/18 15:04 O2 Delivery Mode Room Air Allergies/Adverse Reactions: No Known Allergies Allergy (Verified 07/18/17 11:30) Home Medications: Medication Instructions Recorded Lisinopril/Hydrochlorothiazide 1 each PO DAILY 09/25/09 [Zestoretic 20-25 mg Tablet] Albuterol [Proventil Inhaler HFA 1 - 2 puffs IH Q4H PRN 05/21/18 (*)] Ergocalciferol [Vitamin D2 (*)] 50,000 unit PO Q7D 05/21/18 Esomeprazole Mag Trihydrate 40 mg PO DAILY 05/21/18 [Nexium] cycloSPORINE 0.05% [Restasis Opht 1 drop EACHEYE BID 05/21/18 Drops(*)] Benzonatate [Tessalon Pearles] 200 mg PO TID PRN #20 cap 05/24/18 Famotidine [Pepcid 20 MG (*)] 20 mg PO BID #10 tab 08/11/18 Medical Decision Making - Diagnostics Imaging Results: Imaging Impressions Abdomen/Pelvis CT 08/11/18 15:24 Impression: 1. Extensive uncomplicated diverticulosis of the sigmoid colon without diverticulitis. 2. Mild prominence of the common bile duct that is probably normal post cholecystectomy in this elderly patient. If there is possibility of biliary obstruction and consider correlation with ultrasound or MRI as clinically directed. 3. 3 cm right ovarian cyst. This is stable when compared to prior pelvic ultrasound study from 10/23/2017. Consider continued follow-up ultrasound in one year. Findings discussed with Rhiannon Sanchez M.D. at 16:15 hour, 08/11/2018. ED Course/Re-evaluation: In the emergency department I discussed possible etiologies with the patient. I answered all her questions. IV was placed. Laboratory studies and imaging were obtained. Patient did not want pain medication. Patient was given Pepcid 20 mg IV and Zofran 4 mg IV for nausea. EKG shows normal sinus rhythm, normal rate, normal axis, normal intervals. There are no ST or T-wave abnormalities. EKG is normal as interpreted by me. CBC and chemistry unremarkable. LFTs are normal. Lipase is normal. CT: Please refer the dictated report. No acute disease noted. I discussed the results with the patient. She was feeling better on recheck. Her abdomen was soft, nontender nondistended. Patient was given warnings prior to leaving. She will return with worsening symptoms. Differential Diagnosis: My differential includes but is not limited to pancreatitis, cholangitis, retained stone, small-bowel obstruction, perforation, GERD, peptic ulcer disease , esophagitis, hiatal hernia - Data Points Laboratory Results: Laboratory Results 08/11/18 15:20 08/11/18 15:20 08/11/18 08/11/18 08/11/18 16:05 15:20 15:20 WBC 7.39 10^3/uL 10^3/uL (3.80-9.50) RBC 4.41 10^6/uL 10^6/uL (4.18-5.33) Hgb 13.3 g/dL g/dL (12.6-16.3) Hct 40.9 % % (38.0-47.0) MCV 92.7 fL fL (81.5-99.8) MCH 30.2 pg pg (27.9-34.1) MCHC 32.5 g/dL g/dL (32.4-36.7) RDW 12.7 % % (11.5-15.2) Plt Count 201 10^3/uL 10^3/uL (150-400) MPV 9.2 fL fL (8.7-11.7) Neut % (Auto) 66.4 % % (39.3-74.2) Lymph % (Auto) 15.7 % % (15.0-45.0) Stephenson % (Auto) 6.5 % % (4.5-13.0) Eos % (Auto) 10.7 % H % (0.6-7.6) Baso % (Auto) 0.4 % % (0.3-1.7) Nucleat RBC Rel Count 0.0 % % (0.0-0.2) Absolute Neuts (auto) 4.91 10^3/uL 10^3/uL (1.70-6.50) Absolute Lymphs (auto) 1.16 10^3/uL 10^3/uL (1.00-3.00) Absolute Monos (auto) 0.48 10^3/uL 10^3/uL (0.30-0.80) Absolute Eos (auto) 0.79 10^3/uL H 10^3/uL (0.03-0.40) Absolute Basos (auto) 0.03 10^3/uL 10^3/uL (0.02-0.10) Absolute Nucleated RBC 0.00 10^3/uL 10^3/uL (0-0.01) Immature Gran % 0.3 % % (0.0-1.1) Immature Gran # 0.02 10^3/uL 10^3/uL (0.00-0.10) Sodium 137 mEq/L mEq/L (135-145) Potassium 4.2 mEq/L mEq/L (3.5-5.2) Chloride 103 mEq/L mEq/L (97-110) Carbon Dioxide 24 mEq/l mEq/l (22-31) Anion Gap 10 mEq/L mEq/L (6-14) BUN 24 mg/dL H mg/dL (7-23) Creatinine 1.0 mg/dL mg/dL (0.6-1.0) Estimated GFR 53 Glucose 112 mg/dL H mg/dL (70-100) Calcium 9.9 mg/dL mg/dL (8.5-10.4) Total Bilirubin 0.5 mg/dL mg/dL (0.1-1.4) Conjugated Bilirubin 0.2 mg/dL mg/dL (0.0-0.5) Unconjugated Bilirubin 0.3 mg/dL mg/dL (0.0-1.1) AST 19 IU/L IU/L (14-46) ALT 28 IU/L IU/L (9-52) Alkaline Phosphatase 77 IU/L IU/L (38-126) Total Protein 7.3 g/dL g/dL (6.3-8.2) Albumin 4.2 g/dL g/dL (3.5-5.0) Lipase 165 IU/L IU/L (23-300) Urine Color PALE YELLOW Urine Appearance CLEAR Urine pH 5.0 (5.0-7.5) Ur Specific [place] 1.008 (1.002-1.030) Urine Protein NEGATIVE (NEGATIVE) Urine Ketones NEGATIVE (NEGATIVE) Urine Blood NEGATIVE (NEGATIVE) Urine Nitrate NEGATIVE (NEGATIVE) Urine Bilirubin NEGATIVE (NEGATIVE) Urine Urobilinogen NEGATIVE EU EU (0.2-1.0) Ur Leukocyte Esterase NEGATIVE (NEGATIVE) Urine RBC 1-3 /hpf /hpf (0-3) Urine WBC 1-3 /hpf /hpf (0-3) Ur Epithelial Cells TRACE /lpf /lpf (NONE-1+) Urine Glucose NEGATIVE (NEGATIVE) Medications Given: Discontinued Medications Sodium Chloride (Ns) 250 mls @ 0 mls/hr IV EDNOW ONE; Wide Open PRN Reason: Protocol Stop: 08/11/18 15:23 Last Admin: 08/11/18 15:35 Dose: 250 mls Famotidine/Sodium Chloride (Pepcid 20 Mg (Premix)) 50 mls @ 200 mls/hr IV EDNOW ONE Stop: 08/11/18 15:36 Last Admin: 08/11/18 15:34 Dose: 50 mls Ondansetron HCl (Zofran) 4 mg IVP EDNOW ONE Stop: 08/11/18 15:23 Last Admin: 08/11/18 15:35 Dose: 4 mg Departure - Departure Disposition: Home, Routine, Self-Care Clinical Impression: Abdominal pain Qualifiers: Abdominal location: epigastric Qualified Code(s): R10.13 - Epigastric pain Condition: Good Instructions: Acute Abdominal Pain (ED) Additional Instructions: Return with increasing abdominal pain, vomiting, fever or any other concerns. Call tomorrow morning to make the next available appointment with your primary care physician. Referrals: Leah Shields MD [Primary Care Provider] - 1-2 days without fail Prescriptions: Famotidine [Pepcid 20 MG (*)] 20 mg PO BID #10 tab
[2018-08-11 15:31] LABS: PLATELET COUNT 201 10^3/uL (150-400)
[2018-08-11 17:24] VITALS: BP 128/78
--- NOTE | 2018-08-11 19:52 | CPEKG ---
Test Reason : OPEN Blood Pressure : / mmHG Vent. Rate : 071 BPM Atrial Rate : 070 BPM P-R Int : 182 ms QRS Dur : 087 ms QT Int : 417 ms P-R-T Axes : 042 034 056 degrees QTc Int : 454 ms Sinus rhythm Confirmed by Rhiannon Sanchez ([id number]) on 08/11/2018 7:52:04 PM Referred By: Rhiannon Sanchez Confirmed By:Rhiannon Sanchez
== END 2018-08-11 17:39 | disposition home or self-care (01) ==
DX: R10.13 Epigastric pain (principal); R11.0 Nausea; I10 Essential (primary) hypertension; Z90.49 Acquired absence of other specified parts of digestive tract
CPT/HCPCS: 74176; 93005; 96374; 96375; 99285; J2405